=== PATIENT | female | born 1985 | race Caucasian/White ===

== ENCOUNTER 2022-07-04 14:55 | Emergency (ER) | payer OTHER ==
[~2022-07-04] VITALS: Ht 172.7 cm; Wt 68.0 kg
--- NOTE | 2022-07-04 15:20 | NUR ---
R INDEX, R THUMB LACERATION W/ A MANDOLIN. NOT UTD W TDAP.
[2022-07-04] MEDS ORDERED: TDAP [DIPH/PERTUSSIS/TET] 0.5 ML VIAL IM ONE ×2 (16:00→16:12)
[2022-07-04] MEDS ORDERED: ACETAMINOPHEN 325 MG TABLET PO ONE (16:00)
[2022-07-04] MEDS ORDERED: ACETAMINOPHEN 325 MG TABLET ONE (16:12)
--- NOTE | 2022-07-04 16:30 | NUR ---
PRESSURE DRESSING APPLIED BY EMT
[2022-07-04] MEDS ORDERED: SULF1TAB48 PO (16:36)
[2022-07-04] MEDS ORDERED: IBUP-1953 PO (16:36)
[2022-07-04] MEDS ORDERED: HYDR-3980 PO (16:36)
[2022-07-04 16:56] VITALS: BP 121/61
--- NOTE | 2022-07-04 16:58 | NUR ---
Giselle brennan in [facility] - 07/04/22 at 1659 by RY Patient discharged to home in stable condition. Written and verbal after care instructions given. Patient verbalizes understanding of instruction.
--- NOTE | 2022-07-04 16:59 | NUR ---
Patient discharged to home in stable condition. Written and verbal after care instructions given. Patient verbalizes understanding of instruction.
== END 2022-07-04 16:59 | disposition home or self-care (01) ==
LOC: ER 15:21
DX: S61.011A Laceration without foreign body of right thumb without damage to nail, initial encounter (principal); W26.8XXA Contact with other sharp object(s), not elsewhere classified, initial encounter; Y93.89 Activity, other specified; Y92.89 Other specified places as the place of occurrence of the external cause; Y99.8 Other external cause status
CPT/HCPCS: 73140-TC; 90715